=== PATIENT | male | born 1990 | race Native Hawaiian/Other Pacific Islander ===

== ENCOUNTER 2018-03-19 18:32 | Emergency (ER) | payer OTHER ==
[~2018-03-19] VITALS: Ht 188 cm; Wt 70.3 kg
[2018-03-19 20:10] VITALS: BP 142/88; TEMP 97.9
== END 2018-03-19 20:10 | disposition home or self-care (01) ==
LOC: ED 18:32
DX: K59.09 Other constipation (principal)
CPT/HCPCS: 99282

== ENCOUNTER 2018-06-23 00:12 | Emergency (ER) | payer OTHER ==
[~2018-06-23] VITALS: Ht 188 cm; Wt 63.5 kg
[2018-06-23 01:04] LABS: PLATELET COUNT 211 K/uL (142-355)
[2018-06-23 01:08] LABS: POTASSIUM 3.7 mmol/L (3.6-5.2)
[2018-06-23 04:25] VITALS: TEMP 98.1
[2018-06-23 21:35] VITALS: BP 108/65
== END 2018-06-23 21:35 | disposition other institution (70) ==
LOC: ED 00:12
PROVIDERS: Student in an Organized Health Care Education/Training Program
DX: T14.91XA Suicide attempt, initial encounter (principal); T39.1X2A Poisoning by 4-Aminophenol derivatives, intentional self-harm, initial encounter; F10.129 Alcohol abuse with intoxication, unspecified; R42 Dizziness and giddiness
CPT/HCPCS: 80053; 80307; 80320; 80329; 81000; 85027; 85610; 85730; 93005; 96365; 99285